=== PATIENT | male | born 1965 ===

== ENCOUNTER 2018-11-30 07:44 | Outpatient (REF) | payer BC, SELFPAY ==
[2018-11-30 13:18] LABS: Cholesterol 172 mg/dL (50-200); Glucose 93 mg/dL (70-100); HDL Cholesterol 41 mg/dL (40-60); LDL CHOLESTEROL 121 mg/dL (<100); Triglyceride 78 mg/dL (30-150)
== END 2018-11-30 08:04 ==
LOC: NCHCN 07:44
PROVIDERS: PCP Nurse Practitioner Family; Visit Provider Nurse Practitioner
DX: Z00.00 Encounter for general adult medical examination without abnormal findings (principal); Z13.1 Encounter for screening for diabetes mellitus; Z13.220 Encounter for screening for lipoid disorders
CPT/HCPCS: 80061; 82947; 83721

== ENCOUNTER 2019-11-16 09:02 | Outpatient (REF) | payer BC, SELFPAY ==
[2019-11-17 13:28] LABS: PSA, Screening 0.7 ng/mL (0.0-3.5)
== END 2019-11-16 09:22 ==
LOC: NCHCN 09:02
PROVIDERS: PCP Nurse Practitioner; Visit Provider Nurse Practitioner
DX: Z12.5 Encounter for screening for malignant neoplasm of prostate (principal)
CPT/HCPCS: 84153

== ENCOUNTER 2022-09-09 19:29 | Outpatient (REF) | payer BC, SELFPAY ==
[2022-09-09 15:37] LABS: HCT 45.3 % (40.0-50.0); HGB 15.5 g/dL (13.5-17.5); MCH 30.7 pg (27.0-33.0); MCHC 34.2 % (32.0-36.0); MCV 90 fL (80-95); MPV 10.3 fL (8.0-11.0); Platelet Count 228 10^3/uL (130-400); RBC 5.05 10^6/uL (4.36-5.78); RDW-SD 39.3 fL; WBC 6.38 10^3/uL (4.4-10.8)
[2022-09-09 16:34] LABS: ALT 36 U/L (16-63); AST 24 U/L (15-37); Albumin 4.2 g/dL (3.4-5.0); Alkaline Phosphatase 62 U/L (46-116); Anion Gap 6.3 mmol/L (3-11); BUN 15 mg/dL (7-18); CO2 28.7 mmol/L (21.0-32.0); CREATININE 0.8 mg/dL (0.70-1.30); Calcium 9.3 mg/dL (8.5-10.1); Calculated LDL 114 mg/dL (<100); Chloride 106 mmol/L (98-107); Cholesterol 172 mg/dL (<200); Estimated GFR 102.58 (mL/min/1.73m2); Glucose 104 mg/dL (74-106); HDL Cholesterol 43 mg/dL (40-60); Potassium 4.2 mmol/L (3.5-5.1); Sodium 141 mmol/L (136-145); Total Protein 7.4 g/dL (6.4-8.2); Triglyceride 79 mg/dL (<150)
[2022-09-10 11:03] LABS: PSA, Screening 0.8 ng/mL (<=3.5)
== END 2022-09-09 19:30 | disposition home or self-care (01) ==
LOC: NCHCN 19:29
PROVIDERS: PCP Nurse Practitioner Family; Visit Provider Nurse Practitioner Family
DX: E78.2 Mixed hyperlipidemia (principal); R10.31 Right lower quadrant pain; Z12.5 Encounter for screening for malignant neoplasm of prostate; Z00.00 Encounter for general adult medical examination without abnormal findings
CPT/HCPCS: 80053; 80061; 84153; 85027